=== PATIENT | female | born 1955 | race Caucasian/White ===

== ENCOUNTER 2017-02-20 21:32 | Emergency (ER) | payer OTHER ==
[2017-02-20] MEDS ORDERED: predniSONE TAB* 20 MG PO ONE (21:55)
[2017-02-20] MEDS ORDERED: Cyclobenzaprine TAB* 10 MG PO ONE (21:55)
--- NOTE | 2017-02-20 21:55 | UC ---
Neck Pain HPI - HPI Summary HPI Summary: 61 YEAR OLD FEMALE PRESENTS WITH LEFT SIDED NECK PAIN. - History of Current Complaint Chief Complaint: UCGeneralIllness Stated Complaint: NECK PAIN Time Seen by Provider: 02/20/17 21:52 Hx Obtained From: Patient Onset/Duration Of Injury/Symptoms: Hours Onset/Duration: Sudden Onset Severity: Moderate Pain Scale Used: 0-10 Numeric - 9 - Allergies/Home Medications Allergies/Adverse Reactions: Allergies Allergy/AdvReac Type Severity Reaction Status Date / Time Penicillins Allergy Rash Verified 02/20/17 21:40 PMH/Surg Hx/FS Hx/Imm Hx - Surgical History Surgical History: Yes Surgery Procedure, Year, and Place: 1961 tonsils, 2005 - total hysterectomy, 2006 - [facility]- (left) uretal reattachment, various dental surgeries - Family History Known Family History: Positive: None - reviewed & noncontributory - Social History Alcohol Use: Occasionally Substance Use Type: None Smoking Status (MU): Former Smoker Have You Smoked in the Last Year: No When Did the Patient Quit Smoking/Using Tobacco: 2005 - Immunization History Most Recent Influenza Vaccination: never Most Recent Tetanus Shot: unknown Most Recent Pneumonia Vaccination: never Review Of Systems Constitutional: Positive: Negative, Fever Eyes: Positive: Negative ENT: Positive: Negative Respiratory: Positive: Negative Cardiovascular: Positive: Negative Gastrointestinal: Positive: Negative Genitourinary: Positive: Negative Musculoskeletal: Positive: Myalgia, Other: - LEFT SIDED NECK PAIN All Other Systems Reviewed And Are Negative: Yes Physical Exam Triage Information Reviewed: Yes Vital Signs: Initial Vital Signs Temp 36.6 C 02/20/17 21:40 Pulse 90 02/20/17 21:40 Resp 20 02/20/17 21:40 Pulse Ox 100 02/20/17 21:40 Vital Signs Reviewed: Yes Eye Exam: Normal ENT Exam: Normal Dental Exam: Normal Neck exam: Normal Neck: Positive: 1 Respiratory Exam: Normal Cardiovascular Exam: Normal Abdominal Exam: Normal Musculoskeletal: Positive: Other: - LEFT SIDED NECK PAIN/SPASM Neurological Exam: Normal Psychological Exam: Normal Skin Exam: Normal Neck Pain Course/Dx - Differential Dx/Diagnosis Provider Diagnoses: LEFT NECK PAIN. LEFT NECK SPASM Discharge - Discharge Plan Condition: Stable Disposition: HOME Prescriptions: Methocarbamol TAB* [Robaxin 500 MG TAB*] 500 mg PO TID PRN #30 tab PRN Reason: Spasms - Neck Methylprednisolone [Medrol Dosepak 4 MG*] 4 mg PO .SEE BENITEZ INSTRUCTION #21 tab Patient Education Materials: Acute Neck Pain (ED) [place] [facility] [place] [Medical Doctor] - Tacho Spencer MD [Primary Care Provider] - Gilbert Samuel MD [Medical Doctor] -
[2017-02-20] MEDS ORDERED: Acetaminop/Codeine 30 MG TAB* 1 TAB (300 MG/30 MG) PO ONE (22:01)
== END 2017-02-20 22:08 | disposition home or self-care (01) ==
LOC: UCEAST 21:32
DX: M54.2 Cervicalgia (principal); M62.838 Other muscle spasm; Z88.0 Allergy status to penicillin; Z87.891 Personal history of nicotine dependence
CPT/HCPCS: 99213; A9270-GY; G0463; J7512

== ENCOUNTER 2020-10-11 13:15 | Observation (INO) ==
[~2020-10-11 13:15] MED LIST: Buffered Lidocaine 1% SYRIN 1 ml INTRADERM ONE; DiMENhydriNATE IV 50 mg/ml 1 ml VIAL IV PUSH ONE; HYDROcodone/ACETAMIN 5/325 mg TAB PO PRN; Lactated Ringers 1000 ml BAG 1,000 ML IV SCH; Metoclopramide 5 MG/ML VIAL (10 mg) IV PRN; Naloxone 0.4 mg VIAL 0.4 mg/ml 1 ml VIAL IV PRN; Ondansetron 4 mg VIAL 2 MG/ML 2 ml VIAL IV PRN
[2020-10-11] MEDS ORDERED: DiMENhydriNATE IV 50 mg/ml 1 ml VIAL ONE (13:42)
[2020-10-11] MEDS ORDERED: ceFAZolin 2 GM PREMIX 2 GM/50 ML BAG ONE (13:43)
[2020-10-11] MEDS ORDERED: Midazolam 5 mg/5 ml VIAL 1 mg/ml 5 ml VIAL (5 mg) ONE (14:42)
[2020-10-11] MEDS ORDERED: fentaNYL 100 mcg/2 ml 50 MCG/ML VIAL ONE ×3 (14:42→19:55)
[2020-10-11] MEDS ORDERED: Phenylephrine IV 10 MG/ML 1 ml VIAL ONE (14:42)
[2020-10-11] MEDS ORDERED: Bupivacaine 0.5% SDV PF 30ML VIAL ONE (15:28)
[2020-10-11] MEDS ORDERED: ROPIVACAINE 5 MG/ML 30 ML BTL (0.5%) ONE (15:40)
[2020-10-11] MEDS ORDERED: Lidocaine 2% PF 5 ML VIAL ONE (16:16)
[2020-10-11] MEDS ORDERED: Lactulose 30 ml UDC PO PRN (16:26)
[2020-10-11] MEDS ORDERED: Morphine 2 MG/ML SYRINGE IV PRN (16:26)
[2020-10-11] MEDS ORDERED: diPHENhydraMINE IV 50 MG/ML 1 ml VIAL (BENADRYL) IV PRN (16:26)
[2020-10-11] MEDS ORDERED: diPHENhydraMINE 25 mg TAB PO PRN (16:26)
[2020-10-11] MEDS ORDERED: Ondansetron ODT 4 mg TAB 4 MG TAB PO PRN (16:26)
[2020-10-11] MEDS ORDERED: Magnesium Hydroxide LIQ 30 ML UDC PO PRN (16:26)
[2020-10-11] MEDS ORDERED: Ondansetron 4 mg VIAL 2 MG/ML 2 ml VIAL IV PRN (16:26)
[2020-10-11] MEDS ORDERED: Lactated Ringers 1000 ml BAG 1,000 ML IV SCH (17:00)
[2020-10-11] MEDS ORDERED: HYDROcodone/ACETAMIN 5/325 mg TAB ONE (19:29)
[2020-10-11] MEDS: fentaNYL 100 mcg/2 ml 50 MCG/ML VIAL IV PRN ×5 (19:30→19:57)
[2020-10-11] MEDS ORDERED: HYDROmorphone 1 MG/1 ML SYRINGE IV SLOW PU PRN (20:52)
[2020-10-11] MEDS: Magnesium Hydroxide LIQ 30 ML UDC PO SCH (20:53)
[2020-10-12] MEDS: Clindamycin 600 MG/D5W BAG 600 MG/50 ML BAG IV SCH ×3 (00:34→15:37)
[2020-10-12] MEDS: oxyCODONE/Acetamin 5/325 mg TAB PO PRN ×4 (02:49→15:04)
[2020-10-12 05:43] LABS: Hematocrit 35 % (35-47); Hemoglobin 11.9 g/dL (12.0-16.0); Mean Platelet Volume 7.4 fL (7.4-10.4); Platelet Count 224 10^3/uL (150-450)
[2020-10-12 06:02] LABS: Calcium 9.1 mg/dL (8.6-10.3); EGFR African American 75.5 (>60); EGFR Non-African American 62.4 (>60); Potassium 4.6 mmol/L (3.5-5.0)
[2020-10-12] MEDS ORDERED: Vitamin THERAPEUTIC TAB PO SCH (09:00)
[2020-10-12] MEDS: Magnesium Hydroxide LIQ 30 ML UDC PO SCH (09:11)
[2020-10-12 11:43] VITALS: BP 151/55
== END 2020-10-12 16:40 | disposition home or self-care (01) ==
LOC: SSU 13:15 → OR 13:15
PROVIDERS: ADMIT Orthopaedic Surgery Adult Reconstructive Orthopaedic Surgery; ATTEND Orthopaedic Surgery Adult Reconstructive Orthopaedic Surgery